=== PATIENT | female | born 1980 | race Caucasian/White ===

== ENCOUNTER 2019-11-21 04:35 | Emergency (ER) | payer MEDICARE, SELFPAY | END 2019-11-21 08:28 | disposition home or self-care (01) | PROVIDERS: Emergency Provider Family Medicine; Family Provider Family Medicine; Visit Provider Family Medicine | DX: K52.9 Noninfective gastroenteritis and colitis, unspecified (principal); K29.00 Acute gastritis without bleeding; F17.210 Nicotine dependence, cigarettes, uncomplicated | CPT/HCPCS: 80053; 81001; 83690; 84703; 85025; 87086; 96361; 96365; 96375; 99284; J0131; J1170; J2270; J2405; J2765 ==

== ENCOUNTER 2021-05-26 14:45 | Emergency (ER) | payer MEDICAID, SELFPAY ==
[2021-05-26 15:18] VITALS: BP 105/73; PULSE 86; RESP 16; TEMP 36.9; O2SAT 97; BMI 21.9
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
[2021-05-26] MEDS: HYDROcodone-acetaminophen 7.5-325 mg Tablet 1 TAB PO (15:56)
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
--- NOTE | 2021-05-31 07:36 | DCPLANNER ---
Patient had a follow up appointment scheduled with ortho - patient did not attend the appointment.
--- NOTE | 2021-06-01 11:55 | DCPLANNER ---
Addendum entered by Chitra Mejía 06/04/21 10:09: Patient had message that patient needed a followup appointment scheduled with ortho. A new phone was provided to rn case mgr. corporate relations manager did call the ortho clinic, and gave the ortho clinic the updated phone number for patient. corporate relations manager also called phone [phone], spoke with patient and transferred patient to the ortho clinic, so that a followup appointment could be scheduled. corporate relations manager also had registration update patients phone number in chart. Original Note: Lilian from the ortho clinic called rn case mgr stating that patient did not attend appointment, was also told that clinic is unable to reach patient due to patient not answering phone. corporate relations manager called patients primary care physician at [facility] [place], [place] and was given a different phone number for patient. corporate relations manager called phone numbers [phone], no voicemail box set up, unable to speak with patient. Called phone number [phone] patient was unavailable, unable to leave a voicemail and unable to speak with patient. corporate relations manager also called Lilian at the ortho clinic, and gave her the new phone number for patient, and told her that rn case mgr tried to call patient and was unable to speak with patient or leave voicemails for patient.
--- NOTE | 2021-06-05 13:17 | DCPLANNER ---
[facility] had [facility] follow [facility] scheduled for 06.04.[address] Grider at ortho - patient did attend appointment.
--- NOTE | 2021-06-05 13:18 | DCPLANNER ---
Patient had a follow up appointment scheduled for 06.04.[address] Grider at [facility] - patient did attend appointment.
== END 2021-05-26 18:11 | disposition home or self-care (01) ==
PROVIDERS: Emergency Provider Physician Assistant; PCP Family Medicine
DX: S62.326A Displaced fracture of shaft of fifth metacarpal bone, right hand, initial encounter for closed fracture (principal); W22.8XXA Striking against or struck by other objects, initial encounter
CPT/HCPCS: 26605; 29125; 73120; 73130; 99283

== ENCOUNTER → 2021-06-04 15:59 | Outpatient (BNVA) | payer MEDICAID, SELFPAY | PROVIDERS: PCP Family Medicine; Visit Provider Specialist | DX: S62.339A Displaced fracture of neck of unspecified metacarpal bone, initial encounter for closed fracture (principal); S62.306A Unspecified fracture of fifth metacarpal bone, right hand, initial encounter for closed fracture; X58.XXXA Exposure to other specified factors, initial encounter | CPT/HCPCS: 73130 ==

== ENCOUNTER 2021-09-11 23:32 | Inpatient (IN) | payer MEDICAID, SELFPAY ==
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
[2021-09-11 23:39] VITALS: BP 122/79; PULSE 105; RESP 16; TEMP 36.3; O2SAT 98; BMI 21.9
[2021-09-12] MEDS: iohexol 300 mg/mL 100 mL Btl IV (00:08)
[2021-09-12 00:11] VITALS: BP 119/78; PULSE 97; RESP 16; O2SAT 98
[2021-09-12 00:12] LABS: Amphetamines Screen Urine Positive (Negative); Barbiturates Screen Urine Negative (Negative); Benzodiazepines Screen Urine Negative (Negative); Cocaine Screen Urine Negative (Negative); Opiate Screen Urine Negative (Negative); PCP Screen Urine Negative (Negative); THC Screen Urine Negative (Negative)
[2021-09-12] MEDS: LORazepam 2 mg/mL INJ 1 mL IV (00:18)
[2021-09-12 00:35] LABS: Basophils % 0.4 %; Eosinophils # 0.2 10^3/uL (0.0-0.8); Eosinophils % 2.7 %; Hematocrit 41.4 % (37.0-47.0); Hemoglobin 13.9 g/dL (11.5-15.3); Lymphocytes % 30.1 %; Mean Corpuscular HGB Conc 33.6 g/dL (30.0-36.0); Mean Corpuscular Hemoglobin 29.8 pg (28.0-34.0); Mean Corpuscular Volume 88.8 fl (81-99); Mean Platelet Volume 10.9 fL (7.4-10.4); Monocytes # 0.3 10^3/uL (0.2-0.9); Neutrophils # 4.16 10^3/uL (1.8-7.7); Neutrophils % 62.5 %; Nucleated Red Blood Cells % 0 %; Platelet Count 271 10^3/cmm (130-400); Red Blood Count 4.66 10^6/uL (4.1-5.3); Red Cell Distribution Width 13.2 % (12.1-15.1); White Blood Count 6.7 10^3/uL (4.0-10.0)
[2021-09-12 00:53] LABS: HCG, Serum Qual Negative (Negative)
[2021-09-12 00:57] LABS: Alanine Aminotransferase 12 U/L (0-33); Albumin Level 4.5 g/dL (3.5-5.2); Alcohol Level 181 mg/dL (0-10); Alkaline Phosphatase 76 IU/L (35-105); Anion Gap 15.3 (5-19); Aspartate Amino Transferase 23 U/L (0-32); Blood Urea Nitrogen 6 mg/dL (6-20); Calcium 8.5 mg/dL (8.5-10.5); Carbon Dioxide 24 mmol/L (22-29); Chloride 108 mmol/L (98-107); Globulin 2.9 g/dL (1.3-4.6); Glomerular Filtration Rate 110.7 mL/min (90-130); Glucose 90 mg/dL (65-115); Osmolality Calculated 295 mOsm/kg (285-295); Potassium 3.3 mmol/L (3.5-5.1); Sodium 144 mmol/L (136-145); Total Bilirubin 0.3 mg/dL (0.15-1.2); Total Protein 7.4 g/dL (6.6-8.7)
[2021-09-12 01:00] LABS: Acetaminophen < 5.0 ug/mL (10-30); Salicylate < 0.3 mg/dL (3-10)
[2021-09-12 02:01] VITALS: BP 129/84; PULSE 93; RESP 20; O2SAT 94
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
[2021-09-12 06:00] VITALS: BP 121/74; PULSE 97; RESP 18; TEMP 37.1; O2SAT 98
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
--- NOTE | 2021-09-12 12:19 | NPU.GN ---
[facility] Group Topic:Coping Skills Bingo/ Cross word puzzle General Mood of Group: Beronica did not attend and participate in group therapy this morning. Beronica wanted to sleep.
[2021-09-12 14:00] VITALS: RESP 16; TEMP 37
[2021-09-12 20:10] VITALS: RESP 16
--- NOTE | 2021-09-12 22:43 | PC.NURSE ---
Upon assessment patient was resting in bed with eyes closed. She would not answer questions regarding depression, anxiety, SI and HI. She did state that she has pain 6/10 to her face. Patient would not open her eyes for assessment and spoke in a whisper. She would only state, I want to go home. Patient has been withdrawn. Will continue to monitor and follow plan of care. Q 15 min safety checks per protocol.
[2021-09-13 06:00] VITALS: BP 112/64; PULSE 74; RESP 18; TEMP 36.5; O2SAT 95
--- NOTE | 2021-09-13 13:15 | NPU.GN ---
[facility] Topic:Coping Kills Checklist General Mood of Group: Beronica did attend group today. Beronica was not very talkative but was very emotional during group. This information writer let patient know that if she needed to talk after group that this information writer was there to talk to. Beronica met with this information writer after group and opened up and was interested in CPRC and ITCD services with [facility] [place]. This information writer aided the patient with filling out the packet for services.
[2021-09-13 14:00] VITALS: BP 121/82; PULSE 76; RESP 18; TEMP 36.9; O2SAT 100
[2021-09-13 17:48] VITALS: BP 121/82; PULSE 76; RESP 18; TEMP 36.9; O2SAT 100
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
== END 2021-09-13 18:15 | disposition home or self-care (01) | DRG 897 ==
LOC: ER 09-12 00:53 → NP 09-12 01:30
PROVIDERS: Admitting Provider Psychiatry & Neurology Psychiatry; Emergency Provider Emergency Medicine; PCP Family Medicine; Visit Provider Psychiatry & Neurology Child & Adolescent Psychiatry
DX: F10.929 Alcohol use, unspecified with intoxication, unspecified (principal); R45.851 Suicidal ideations; Z63.0 Problems in relationship with spouse or partner; Y09 Assault by unspecified means
CPT/HCPCS: 70450; 71260; 72125; 74177; 80053; 80306; 80307; 84703; 85025; 96374; 97150; 97165; 99285; J2060; Q9967

== ENCOUNTER 2022-08-05 19:58 | Emergency (ER) | payer MEDICAID, SELFPAY ==
[2022-08-05 20:21] VITALS: BP 112/74; PULSE 94; RESP 18; TEMP 36.6; O2SAT 98; BMI 19.8
[2022-08-05 20:54] LABS: Basophils # 0.1 10^3/uL (0.0-0.1); Basophils % 0.7 %; Eosinophils # 0.2 10^3/uL (0.0-0.8); Eosinophils % 2.1 %; Hematocrit 33.2 % (37.0-47.0); Lymphocytes % 26.3 %; Mean Corpuscular HGB Conc 33.1 g/dL (30.0-36.0); Mean Corpuscular Hemoglobin 30.3 pg (28.0-34.0); Mean Corpuscular Volume 91.5 fl (81-99); Mean Platelet Volume 10.7 fL (7.4-10.4); Monocytes # 0.4 10^3/uL (0.2-0.9); Monocytes % 4.6 %; Neutrophils # 4.99 10^3/uL (1.8-7.7); Neutrophils % 66.2 %; Nucleated Red Blood Cells % 0 %; Platelet Count 231 10^3/cmm (130-400); Red Blood Count 3.63 10^6/uL (4.1-5.3); Red Cell Distribution Width 12.5 % (12.1-15.1); White Blood Count 7.5 10^3/uL (4.0-10.0)
[2022-08-05 21:14] LABS: Troponin(5th) Baseline 6 ng/L (0-10)
[2022-08-05 21:15] LABS: Alanine Aminotransferase 12 U/L (0-33); Alkaline Phosphatase 90 U/L (35-105); Anion Gap 15.8 (5-19); Aspartate Amino Transferase 19 U/L (0-32); Blood Urea Nitrogen 17 mg/dL (6-20); Carbon Dioxide 22 mmol/L (22-29); Chloride 107 mmol/L (98-107); Globulin 2.5 g/dL (1.3-4.6); Glomerular Filtration Rate 92.2 mL/min (90-130); Glucose 75 mg/dL (65-115); Osmolality Calculated 292 mOsm/kg (285-295); Potassium 3.8 mmol/L (3.5-5.1); Sodium 141 mmol/L (136-145); Total Bilirubin 0.2 mg/dL (0.15-1.2); Total Protein 6.5 g/dL (6.6-8.7)
== END 2022-08-05 21:45 | disposition left against medical advice (07) ==
PROVIDERS: Emergency Medicine; Emergency Provider Family Medicine; PCP Family Medicine
DX: Z53.21 Procedure and treatment not carried out due to patient leaving prior to being seen by health care provider (principal)
CPT/HCPCS: 80053; 84484; 85025

== ENCOUNTER 2022-09-03 09:28 | Emergency (ER) | payer MEDICAID, SELFPAY ==
[2022-09-03 09:33] VITALS: BP 100/64; PULSE 81; RESP 16; TEMP 36.6; O2SAT 100; BMI 20.7
--- NOTE | 2022-09-03 09:44 | PC.PHAR ---
PT STATES TAKES NO RX OR OTC MEDICATIONS STATES COULDNT AFFORD TO BUY OTC MEDS TO TAKE FOR HER PAIN
--- NOTE | 2022-09-03 09:50 | XRR_ITS ---
PROCEDURE INFORMATION: Exam: XR Left Ribs with PA Chest Exam date and time: 09/03/2022 10:05 AM Age: 42 years old Clinical indication: Injury or trauma; Fall; Rib area, left side; Blunt trauma; Prior surgery; Surgery type: Spinal stimulator; Patient HX: PT fell x 2 days ago and now has pain in the posterior left mid side of back. ; Additional info: Fall posterior rib pain TECHNIQUE: Imaging protocol: Radiologic exam of the Left ribs with PA chest. Views: 3 views; Frontal view of the chest with Frontal and Oblique rib views COMPARISON: CT chest abd pel w con* 09/12/2021 12:07 AM FINDINGS: Lungs: Normal lung volumes without interstitial or airspace opacities. Pleural spaces: No pleural effusions. No pneumothorax. Heart/Mediastinum: The heart size and mediastinal contour is normal. Bones/joints: Left Ribs: No definite rib fractures. The costovertebral junctions are unremarkable. No other acute osseous abnormalities. Spinal stimulator leads are seen overlying the midline mid thoracic spine region. Notes: If there is further concern can consider additional views or bone scan. XR/XR ribs LT mn 3V w CXR1V [id number] IMPRESSION: Unremarkable one view chest and left rib series.
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
[2022-09-03] MEDS: HYDROcodone-acetaminophen 5-325 mg Tablet 2 TAB PO (09:53)
[2022-09-03 09:57] VITALS: BP 100/64; PULSE 81; RESP 16; TEMP 36.6; O2SAT 100
== END 2022-09-03 11:16 | disposition home or self-care (01) ==
PROVIDERS: Emergency Provider Family Medicine; PCP Family Medicine
DX: R07.81 Pleurodynia (principal); W01.0XXA Fall on same level from slipping, tripping and stumbling without subsequent striking against object, initial encounter
CPT/HCPCS: 71101; 99283

== ENCOUNTER 2024-01-16 02:04 | Emergency (ER) | payer MEDICAID, SELFPAY ==
--- NOTE | 2024-01-16 02:10 | XRR_ITS ---
PROCEDURE INFORMATION: Exam: XR Chest Exam date and time: 01/16/2024 2:28 AM Age: 43 years old Clinical indication: Cough and dyspnea and fever and other: Body aches; Prior surgery; Surgery date: 6+ months; Surgery type: Back; Additional info: Fever/dyspnea TECHNIQUE: Imaging protocol: Radiologic exam of the chest. Views: 1 view. COMPARISON: CR XR ribs LT mn 3V w CXR1V [id number] 09/03/2022 10:05 AM FINDINGS: Tubes, catheters and devices: Stable appearance of thoracic spine stimulator. Lungs: Unremarkable. No consolidation. Pleural spaces: Unremarkable. No pleural effusion. No pneumothorax. Heart/Mediastinum: Unremarkable. No cardiomegaly. Bones/joints: Punctate calcification appreciated at the footprint of the superior rotator cuff of the right shoulder. XR/XR chest 1V portable [id number] IMPRESSION: 1. No acute cardiopulmonary findings. 2. Possible right calcific tendinopathy of the rotator cuff of the shoulder.
--- NOTE | 2024-01-16 02:12 | W.ED.GENADLT ---
HPI - General Adult General: Chief complaint: Fever Stated complaint: Fever, nausea joints hurt weight gain sob Time Seen by Provider: 01/16/24 02:08 History of Present Illness: 41-year-old female presents emergency department with complaints of generalized aching, fatigue and malaise, nonproductive cough, low back pain concerning for urinary tract infection. She states she also had a 5 pound weight gain this week. She states she has not seen her primary care provider for this condition. She does have a dry nonproductive cough. She states she also feels like she has had a fever although she is not taken her temperature. She does endorse recent sick contacts with similar illnesses. Associated symptoms: Reports malaise Review of Systems General: Reports: 10 or more systems reviewed and unremarkable except in HPI and below Const: Reports: fever(s), body aches, fatigue and malaise Resp: Reports: non-productive cough PFS ED PFSH: Medical History (Updated 01/16/24 @ 03:16 by Kodi Thornton MD) Cigarette nicotine dependence Marijuana use, episodic Methamphetamine dependence, episodic Chronic post-traumatic stress disorder Severe Major depressive disorder, recurrent severe without psychotic features Psychiatric care Social History (Updated 01/06/23 @ 14:21 by Wilmer Randall LPN) Smoking and tobacco/nicotine status: current every day tobacco/nicotine user Quit status (tobacco/nicotine): not considering quitting Second hand smoke exposure: No Alcohol intake: current Alcohol intake frequency: holidays/special occasions only Alcohol type: hard liquor Substance/Drug Use: current Substance/Drug use frequency: few times a week Other substance/drug use details: Last used Marijuana 01/03/2023, Last used Meth 01/05/2023 Adopted: No Caregiver/support person: No Lives independently: Yes Household members: none Housing: House Marital status: Single Highest education level completed: High School Graduate service: Yes status: Discharged branch: [employer] Current occupational status: unemployed Current occupational exposures/hazards: No Do you think of yourself as: Straight/Heterosexual Current gender identity: Female Special melo needs: No Agree to transfusion: No Physical Exam Narrative: EXAM NARRATIVE: Constitutional: the patient appears well nourished and of normal development. Vital signs as documented. No acute distress at present. Alert and oriented-to person, place, time and situation. Head, eyes, ears, nose, mouth, throat: Normocephalic, atraumatic. Pupils-equal, round, reactive to light. No scleral icterus. Normal-appearing external ears. Normal appearing nasal turbinates, no drainage. No obvious oral lesions, posterior oropharynx without erythema or exudates. Neck: Supple, trachea is midline, no lymphadenopathy, no jugular venous distension, thyromegaly, or carotid bruits. Carotid upstrokes are brisk bilaterally. Lungs: clear to auscultation to all lung vogt. Symmetrical rise and fall of chest, no obvious signs of increased work of breathing at present. Cardiac: Regular rate and rhythm, positive S1, S2. No murmurs, rubs or gallops that I can appreciate Abdomen: Soft, non-tender to palpation, normal active bowel sounds to all quadrants. No palpable masses, no organomegaly and abdominal bruits. Extremities: 2+ pulses in the upper extremities that are equal bilaterally, 2+ pulses in the lower extremities that are equal bilaterally. Non-edematous. Moves all extremities well, sensation to all extremities are noted. Skin: Warm, dry, intact. Course Vital Signs: Vital signs: Vital Signs Temperature 98.2 F 01/16/24 03:27 Pulse Rate 95 01/16/24 03:27 Respiratory Rate 16 01/16/24 03:27 Blood Pressure 125/85 01/16/24 03:27 Pulse Oximetry 95 01/16/24 03:27 [facility] - General Adult Medical Decision Making Physical exam completed and documented, I will obtain a CBC, CMP, chest x-ray, COVID swab, strep swab, influenza swab and urinalysis for evaluation. Differential Diagnosis Viral illness, pneumonia, strep throat, influenza, COVID, UTI, Medical Records I reviewed the patient's medical records. Lab Data I reviewed the patient's lab results. 01/16/24 02:17 01/16/24 02:17 Radiology Impressions Chest X-Ray 01/16/24 02:10 IMPRESSION: 1. No acute cardiopulmonary findings. 2. Possible right calcific tendinopathy of the rotator cuff of the shoulder. Laboratory Results WBC 7.02 10^3/uL (3.29-11.43) 01/16/24 02:17 RBC 4.47 10^6/uL (3.85-5.65) 01/16/24 02:17 Hgb 12.70 g/dL (11.27-16.99) 01/16/24 02:17 Hct 37.9 % (36-47) 01/16/24 02:17 MCV 84.8 fl (85-98) L 01/16/24 02:17 MCH 28.4 pg (27-33) 01/16/24 02:17 MCHC 33.5 g/dL (30-55) 01/16/24 02:17 RDW 13.5 % (12.1-15.1) 01/16/24 02:17 Plt Count 280 10^3/cmm (157-399) 01/16/24 02:17 MPV 9.9 fL (7.4-10.4) 01/16/24 02:17 Neut % (Auto) 62.8 % 01/16/24 02:17 Lymph % (Auto) 30.8 % 01/16/24 02:17 Price % (Auto) 4.4 % 01/16/24 02:17 Eos % (Auto) 1.1 % 01/16/24 02:17 Baso % (Auto) 0.6 % 01/16/24 02:17 Neut # (Auto) 4.41 10^3/uL (1.8-7.7) 01/16/24 02:17 Lymph # (Auto) 2.2 10^3/uL (0.8-4.8) 01/16/24 02:17 Price # (Auto) 0.3 10^3/uL (0.2-0.9) 01/16/24 02:17 Eos # (Auto) 0.1 10^3/uL (0.0-0.8) 01/16/24 02:17 Baso # (Auto) 0.0 10^3/uL (0.0-0.1) 01/16/24 02:17 Nucleated RBC % (auto) 0 % 01/16/24 02:17 Nucleated RBCs # 0.0 /100WBC 01/16/24 02:17 Sodium 142 mmol/L (136-145) 01/16/24 02:17 Potassium 3.4 mmol/L (3.5-5.1) L 01/16/24 02:17 Chloride 106 mmol/L (98-107) 01/16/24 02:17 Carbon Dioxide 22 mmol/L (22-29) 01/16/24 02:17 Anion Gap 17.4 (5-19) 01/16/24 02:17 BUN 7 mg/dL (6-20) 01/16/24 02:17 Creatinine 0.6 mg/dL (0.5-0.9) 01/16/24 02:17 GFR Calculation 109.6 mL/min (90-130) 01/16/24 02:17 Glucose 95 mg/dL (65-115) 01/16/24 02:17 Calculated Osmolality 292 mOsm/kg (285-295) 01/16/24 02:17 Calcium 9.2 mg/dL (8.5-10.5) 01/16/24 02:17 Total Bilirubin 0.3 mg/dL (0.15-1.2) 01/16/24 02:17 AST 22 U/L (0-32) 01/16/24 02:17 ALT 13 U/L (0-33) 01/16/24 02:17 Alkaline Phosphatase 78 U/L (35-105) 01/16/24 02:17 NT-Pro-B Natriuret Pep 50 pg/mL (0-125) 01/16/24 02:17 Total Protein 7.7 g/dL (6.6-8.7) 01/16/24 02:17 Albumin 4.5 g/dL (3.5-5.2) 01/16/24 02:17 Globulin 3.2 g/dL (1.3-4.6) 01/16/24 02:17 Urine Color Yellow (Yellow) 01/16/24 02:17 Urine Appearance Hazy (CLEAR) A 01/16/24 02:17 Urine pH 5 (5-7) 01/16/24 02:17 Ur Specific [place] 1.030 (1.005-1.030) 01/16/24 02:17 Urine Protein Neg (Negative) 01/16/24 02:17 Urine Glucose (UA) Norm (Normal) 01/16/24 02:17 Urine Ketones Negative (Negative) 01/16/24 02:17 Urine Blood Neg (Negative) 01/16/24 02:17 Urine Nitrate Negative (Negative) 01/16/24 02:17 Urine Bilirubin Neg (Negative) 01/16/24 02:17 Urine Urobilinogen Neg mg/dL (Negative) 01/16/24 02:17 Ur Leukocyte Esterase Negative (Negative) 01/16/24 02:17 Urine RBC None /hpf (0-2) 01/16/24 02:17 Urine WBC 0-4 /hpf (0-5) H 01/16/24 02:17 Ur Squamous Epith Cells 25-40 /hpf (0-5) H 01/16/24 02:17 Amorphous Sediment Not Reportable 01/16/24 02:17 Urine Bacteria 1+ /hpf (NONE) H 01/16/24 02:17 Urine Mucus 1+ /hpf 01/16/24 02:17 Influenza Type A Ag negative (Negative) 01/16/24 02:17 Influenza Type B Ag negative (Negative) 01/16/24 02:17 SARS-CoV-2 Ag (Rapid) negative (Negative) 01/16/24 02:17 Group A Strep Rapid Negative (Negative) 01/16/24 02:17 All radiology interpretation(s) finalized by discharge Discharge Plan Discharge Patient Disposition: Home Clinical Impression: Viral upper respiratory illness Cough Qualifiers: Cough type: acute Qualified Code(s): R05.1 - Acute cough Condition: Stable Prescriptions: New benzonatate 200 mg capsule 200 mg PO TID Qty: 30 0RF No Action mirtazapine 15 mg tablet,disintegrating 15 mg PO BEDTIME Qty: 14 3RF Rx Instructions: Take one tablet at bedtime Discharge Orders: Discharge ED (Routine); Ordered 01/16/24 Ordered By: Kodi Thornton Discharge Diet: Usual diet Discharge Activity: Resume usual activity Patient Instructions: Opioid Safety, Pain Management Activity Restrictions/Additional Instructions: Activity Restrictions/Additional Instructions: Thank you for choosing [facility] for your healthcare needs today. Please realize that you were seen in the Emergency Department and that we are providing you with an emergency medical screening exam and this may not be a complete and all inclusive of all the testing and or medical work-up that you may need to determine your ailment or severity of your illness. It is very important that you follow-up as instructed with your Primary care provider or Specialist for additional evaluation and to discuss your medical treatment plan. Coding Level of Care Code ED Stereo Equipment Installer for Viviane Parra
[2024-01-16 02:14] VITALS: BP 155/94; TEMP 36.8; BMI 25.6
[2024-01-16 02:34] VITALS: BP 155/94; PULSE 95; RESP 16; O2SAT 95
[2024-01-16 02:34] LABS: Basophils % 0.6 %; Eosinophils # 0.1 10^3/uL (0.0-0.8); Eosinophils % 1.1 %; Hematocrit 37.9 % (36-47); Lymphocytes # 2.2 10^3/uL (0.8-4.8); Lymphocytes % 30.8 %; Mean Corpuscular HGB Conc 33.5 g/dL (30-55); Mean Corpuscular Hemoglobin 28.4 pg (27-33); Mean Corpuscular Volume 84.8 fl (85-98); Mean Platelet Volume 9.9 fL (7.4-10.4); Monocytes # 0.3 10^3/uL (0.2-0.9); Monocytes % 4.4 %; Neutrophils # 4.41 10^3/uL (1.8-7.7); Neutrophils % 62.8 %; Nucleated Red Blood Cells % 0 %; Platelet Count 280 10^3/cmm (157-399); Red Blood Count 4.47 10^6/uL (3.85-5.65); Red Cell Distribution Width 13.5 % (12.1-15.1); White Blood Count 7.02 10^3/uL (3.29-11.43)
[2024-01-16 02:42] LABS: Add Urine Culture? No; Add Urine Microscopic? YES; Bacteria Urine 1+ /hpf; Bilirubin Urine Neg (Negative); Blood Urine Neg (Negative); Glucose Urine UA Norm (Normal); Ketones Urine Negative (Negative); Leukocyte Esterase Urine Negative (Negative); Mucus Urine 1+ /hpf; Nitrate Urine Negative (Negative); Protein Urine Neg (Negative); Squamous Epithelial Cell Urine 25-40 /hpf (0-5); Urine Appearance Hazy (CLEAR); Urine Color Yellow (Yellow); Urobilinogen Urine Neg (Negative); WBC Urine 0-4 /hpf (0-5); pH Urine 5 (5-7)
[2024-01-16 02:43] LABS: Rapid Strep A Test Negative (Negative)
[2024-01-16 02:52] LABS: Influenza A by IFA negative (Negative); Influenza B by IFA negative (Negative); SARS Covid-2 Antigen negative (Negative)
[2024-01-16 02:56] LABS: Alanine Aminotransferase 13 U/L (0-33); Albumin Level 4.5 g/dL (3.5-5.2); Alkaline Phosphatase 78 U/L (35-105); Anion Gap 17.4 (5-19); Aspartate Amino Transferase 22 U/L (0-32); Blood Urea Nitrogen 7 mg/dL (6-20); Calcium 9.2 mg/dL (8.5-10.5); Carbon Dioxide 22 mmol/L (22-29); Chloride 106 mmol/L (98-107); Creatinine Clr Calc Pharmacy 106.9425; Globulin 3.2 g/dL (1.3-4.6); Glomerular Filtration Rate 109.6 mL/min (90-130); Glucose 95 mg/dL (65-115); Osmolality Calculated 292 mOsm/kg (285-295); Potassium 3.4 mmol/L (3.5-5.1); Sodium 142 mmol/L (136-145); Total Bilirubin 0.3 mg/dL (0.15-1.2); Total Protein 7.7 g/dL (6.6-8.7)
[2024-01-16 03:01] LABS: NT Pro B Type Natriuretic Pept 50 pg/mL (0-125)
[2024-01-16 03:27] VITALS: BP 125/85; PULSE 95; RESP 16; TEMP 36.8; O2SAT 95
== END 2024-01-16 03:28 | disposition home or self-care (01) ==
PROVIDERS: Emergency Provider Internal Medicine
DX: J06.9 Acute upper respiratory infection, unspecified (principal); Z11.52 Encounter for screening for COVID-19; Z72.0 Tobacco use
CPT/HCPCS: 71045; 80053; 81001; 83880; 85025; 87081; 87426; 87804; 87880; 99284

== ENCOUNTER 2024-01-25 14:18 | Emergency (ER) | payer MEDICAID, SELFPAY ==
[2024-01-25 14:20] VITALS: BP 132/70; PULSE 75; RESP 16; TEMP 36.6; O2SAT 96; BMI 26.5
--- NOTE | 2024-01-25 14:20 | ECG_ITS ---
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 Measurements Intervals [place] Rate: 69 P: 64 TX: 112 QRS: 80 QRSD: 84 T: 56 QT: 429 QTc: 462 Interpretive Statements SINUS RHYTHM WITH SHORT TX INTERVAL Compared to ECG 06/16/2016 12:37:40 ST (T wave) deviation no longer present Electronically Signed On 01-26-2024 8:47:51 SOLAR PROJECT COORDINATION SPECIALIST by Michael Drake M.D. [id number]
[2024-01-25 15:30] LABS: Basophils % 0.6 %; Eosinophils # 0.3 10^3/uL (0.0-0.8); Eosinophils % 3.9 %; Hematocrit 37.3 % (36-47); Lymphocytes % 30.3 %; Mean Corpuscular HGB Conc 32.4 g/dL (30-55); Mean Corpuscular Hemoglobin 28.3 pg (27-33); Mean Corpuscular Volume 87.1 fl (85-98); Mean Platelet Volume 10.2 fL (7.4-10.4); Monocytes # 0.3 10^3/uL (0.2-0.9); Monocytes % 4.5 %; Neutrophils # 3.98 10^3/uL (1.8-7.7); Neutrophils % 60.2 %; Nucleated Red Blood Cells % 0 %; Platelet Count 286 10^3/cmm (157-399); Red Blood Count 4.28 10^6/uL (3.85-5.65); Red Cell Distribution Width 13.8 % (12.1-15.1); White Blood Count 6.61 10^3/uL (3.29-11.43)
--- NOTE | 2024-01-25 15:33 | PC.NURSE ---
Pt. stated that they did not want IV access, due to being a previous IV drug user. Family members encouraged pt to obtain IV access. Pt's son asked pt if they could make the decisions and talk with the physician, and pt verbally consented both JASON Person and ELLI Monte observed this consent. IRaza NT, obtained IV access and collected blood.
--- NOTE | 2024-01-25 15:35 | CTR_ITS ---
PROCEDURE INFORMATION: Exam: CT Head Without Contrast Exam date and time: 01/25/2024 3:53 PM Age: 43 years old Clinical indication: Altered mental status/memory loss and syncope and collapse; Additional info: Trauma seizure like activity TECHNIQUE: Imaging protocol: Computed tomography of the head without contrast. Radiation optimization: All CT scans at this facility use at least one of these dose optimization techniques: automated exposure control; mA and/or kV adjustment per patient size (includes targeted exams where dose is matched to clinical indication); or iterative reconstruction. COMPARISON: CT head wo con* [id number] 09/12/2021 12:00 AM RADIATION DOSE METRICS: Total DLP (mGy-cm): 802.08 FINDINGS: Brain: Normal. No hemorrhage. Unremarkable white matter. No mass effect. Cerebral ventricles: No ventriculomegaly. Paranasal sinuses: Visualized sinuses are unremarkable. No fluid levels. Mastoid air cells: Visualized mastoid air cells are well aerated. Bones/joints: Unremarkable. No acute fracture. Soft tissues: Unremarkable. CT/CT head wo con* [id number] IMPRESSION: No acute intracranial abnormality.
--- NOTE | 2024-01-25 15:35 | XRR_ITS ---
PROCEDURE INFORMATION: Exam: XR Chest Exam date and time: 01/25/2024 4:11 PM Age: 43 years old Clinical indication: Cough and shortness of breath and other: Syncope; Smoker's cough; Additional info: Chest pain TECHNIQUE: Imaging protocol: Radiologic exam of the chest. Views: 1 view. COMPARISON: CR (CHEST, ) 01/16/2024 2:28 AM FINDINGS: Tubes, catheters and devices: Spinal stimulator leads noted within the thoracic spine. Lungs: Unremarkable. No consolidation. Pleural spaces: Unremarkable. No pleural effusion. No pneumothorax. Heart/Mediastinum: Unremarkable. No cardiomegaly. Bones/joints: Unremarkable. XR/XR chest 1V portable [id number] IMPRESSION: No acute findings.
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
[2024-01-25 15:49] LABS: HCG, Serum Qual Negative (Negative)
[2024-01-25] MEDS: sodium chloride 0.9% 1,000 ML 999 ML IV (15:52)
[2024-01-25 16:00] LABS: Alanine Aminotransferase 10 U/L (0-33); Albumin Level 4.2 g/dL (3.5-5.2); Alkaline Phosphatase 87 U/L (35-105); Anion Gap 15.4 (5-19); Aspartate Amino Transferase 22 U/L (0-32); Blood Urea Nitrogen 10 mg/dL (6-20); Calcium 8.8 mg/dL (8.5-10.5); Carbon Dioxide 26 mmol/L (22-29); Chloride 107 mmol/L (98-107); Creatinine Clr Calc Pharmacy 108.6918; Globulin 2.9 g/dL (1.3-4.6); Glomerular Filtration Rate 109.6 mL/min (90-130); Glucose 92 mg/dL (65-115); Osmolality Calculated 299 mOsm/kg (285-295); Potassium 3.4 mmol/L (3.5-5.1); Sodium 145 mmol/L (136-145); Total Bilirubin 0.3 mg/dL (0.15-1.2); Total Protein 7.1 g/dL (6.6-8.7)
[2024-01-25 16:08] LABS: Alcohol Level 165 mg/dL (0-10); Creatine Phosphokinase 87 U/L (26-192); Prolactin 10.31 ng/mL (4.8-23.3)
[2024-01-25] MEDS: acetaminophen 500 mg Tablet 1000 MG PO (16:50)
[2024-01-25 17:49] LABS: Add Urine Microscopic? NO; Charge for UA Resulting for Rev
[2024-01-25 17:59] LABS: Bilirubin Urine Neg (Negative); Blood Urine Neg (Negative); Glucose Urine UA Norm (Normal); Ketones Urine Negative (Negative); Leukocyte Esterase Urine Negative (Negative); Nitrate Urine Negative (Negative); Protein Urine Neg (Negative); Urine Appearance Clear (CLEAR); Urine Color Straw (Yellow); Urobilinogen Urine Norm (Negative); pH Urine 6 (5-7)
[2024-01-25 18:10] LABS: Amphetamines Screen Urine Positive (Negative); Barbiturates Screen Urine Negative (Negative); Benzodiazepines Screen Urine Negative (Negative); Cocaine Screen Urine Negative (Negative); Opiate Screen Urine Negative (Negative); PCP Screen Urine Negative (Negative); THC Screen Urine Negative (Negative)
== END 2024-01-25 18:28 | disposition home or self-care (01) ==
PROVIDERS: Emergency Medicine; Emergency Provider Emergency Medicine
DX: F10.920 Alcohol use, unspecified with intoxication, uncomplicated (principal); Y90.6 Blood alcohol level of 120-199 mg/100 ml; Z72.0 Tobacco use; Y04.2XXA Assault by strike against or bumped into by another person, initial encounter
CPT/HCPCS: 36415; 70450; 71045; 80053; 80306; 80307; 81003; 82550; 83735; 84146; 84703; 85025; 93005; 99285; J7030

== ENCOUNTER → 2024-09-28 17:07 | Outpatient (BNVA) | payer MEDICAID, SELFPAY | DX: J02.9 Acute pharyngitis, unspecified (principal) | CPT/HCPCS: 87880 ==